=== PATIENT | male | born 1955 | race Caucasian/White ===

== ENCOUNTER → 2021-09-25 | Day surgery (SDC) | payer OTHER ==
[~2021-09-25] VITALS: Ht 177.8 cm; Wt 89.8 kg
[~2021-09-25] MED LIST: ACETAMINOPHEN500 M1 PO; AMLODIPINE BESYL5 MG PO; ATORVASTATIN CA20 MG PO; CENTRUM SILVER1 EAC2 PO; HCTZ25 MG PO; MOTRIN600 MG PO; OMEPRAZOLE40 MG PO
[2021-09-25 12:07] LABS: BUN/CREAT RATIO (CALC) 18.3 RATIO; CREATININE 0.71 mg/dL (0.67-1.17); POTASSIUM 3.4 mmol/L (3.5-5.1)
== END | disposition home or self-care (01) ==
LOC: FAS 11:04
PROVIDERS: Anesthesiology
DX: C25.2 Malignant neoplasm of tail of pancreas (principal); C79.9 Secondary malignant neoplasm of unspecified site; I10 Essential (primary) hypertension; E78.00 Pure hypercholesterolemia, unspecified; E78.5 Hyperlipidemia, unspecified; G47.33 Obstructive sleep apnea (adult) (pediatric); K21.9 Gastro-esophageal reflux disease without esophagitis; Z79.899 Other long term (current) drug therapy
CPT/HCPCS: 36415; 71045; 76000; 80048; C1788; J0690; J1100; J1644; J2001; J2250; J2405; J2704; J3010; J7120

== ENCOUNTER 2022-01-09 14:48 | Day surgery (SDCO) | payer OTHER ==
[~2022-01-09] VITALS: Ht 180.3 cm; Wt 83.9 kg
[2022-01-10 07:06] LABS: BASOPHIL 0.3 % (0-2); EOSINOPHIL 2.5 % (0-7); HCT 38.5 % (42.0-52.0); HGB 12.6 g/dl (13.2-18.0); LYMPHOCYTE 17.2 % (15-48); MCH 31.3 pg (25.0-31.0); MCHC 32.7 g/dL (32.0-36.0); MCV 95.8 fL (78.0-100.0); MONOCYTE 10.2 % (0-12); MPV 10.7 fL (6.0-9.5); NEUTROPHIL 69.1 % (41-80); NRBC 0; PLT 100 K/uL (150-400); RBC 4.02 M/uL (4.70-6.00); RDW 14.6 % (11.5-14.0); RETICULOCYTE COUNT 0.4 % (1.0-2.0)
[2022-01-10 07:07] LABS: WBC 10.7 K/uL (4.0-10.5)
[2022-01-10 07:27] LABS: IRON % SATURATION 20.1 %SAT (20-50)
[2022-01-10 08:36] LABS: ALBUMIN 2.9 g/dL (3.4-5.0); BILIRUBIN - TOTAL 0.9 mg/dL (0.2-1.0); BUN/CREAT RATIO (CALC) 13.8 RATIO; CREATININE 0.65 mg/dL (0.67-1.17); FOLIC ACID (SERUM) 62.1 ng/mL (8.6-58.9); GLOBULIN (CALCULATION) 2.8 g/dL; MAGNESIUM 2.1 mg/dL (1.8-2.4); PHOSPHORUS 3.4 mg/dL (2.6-4.7); POTASSIUM 3.4 mmol/L (3.5-5.1); TOTAL PROTEIN 5.7 g/dL (6.4-8.2)
[2022-01-10] MEDS ORDERED: ONDANSETRON ODT4 MG PO (12:08)
--- NOTE | 2022-01-10 17:26 | NUR ---
01/10 Mr. Mills lives at [facility] with his spouse. He is independent in the home and community. They are able to meet their financial obligations. Mr. Mills is followed by Dr. Byrnes for treatment of pancreatic cancer.
== END 2022-01-10 12:30 | disposition home or self-care (01) ==
LOC: FMS 14:48
PROVIDERS: ADMIT Internal Medicine
DX: K52.9 Noninfective gastroenteritis and colitis, unspecified (principal); R11.2 Nausea with vomiting, unspecified; K80.20 Calculus of gallbladder without cholecystitis without obstruction; I10 Essential (primary) hypertension; E78.5 Hyperlipidemia, unspecified; K21.9 Gastro-esophageal reflux disease without esophagitis; R16.1 Splenomegaly, not elsewhere classified; Z85.07 Personal history of malignant neoplasm of pancreas; Z66 Do not resuscitate; Z79.899 Other long term (current) drug therapy
CPT/HCPCS: 36415; 80053; 82150; 82607; 82746; 83540; 83550; 83605; 83690; 83735; 84100; 85025; 94010; G0378; J1642; J3475; J7120